=== PATIENT | male | born 1995 | race Caucasian/White ===

== ENCOUNTER 2020-01-04 02:31 | Emergency (ER) | payer BC ==
[~2020-01-04] VITALS: Ht 182.9 cm; Wt 75.0 kg
[2020-01-04 02:45] VITALS: BP 120/77; TEMP 98.2
[2020-01-04 04:36] VITALS: PULSE 89
== END 2020-01-04 04:35 | disposition home or self-care (01) ==
LOC: COL.ER 02:31
DX: S09.90XA Unspecified injury of head, initial encounter (principal); F10.129 Alcohol abuse with intoxication, unspecified; R40.2412 Glasgow coma scale score 13-15, at arrival to emergency department; W22.8XXA Striking against or struck by other objects, initial encounter; Y92.830 Public park as the place of occurrence of the external cause